=== PATIENT | male | born 1995 | race African-American/Black ===

== ENCOUNTER 2020-08-15 16:33 | Emergency (ER) | payer SELFPAY ==
[2020-08-15 16:39] VITALS: BP 143/76; PULSE 63; RESP 18; TEMP 36.8; O2SAT 97
--- NOTE | 2020-08-15 18:57 | ED.GENADULT ---
HPI - General Adult General Chief complaint: Unspecified Stated complaint: STD check Time Seen by Provider: 08/15/20 18:46 Source: patient Mode of arrival: ambulatory Limitations: no limitations History of Present Illness HPI narrative: Patient is a 25-year-old male who presents with several days duration of burning of the penis at the urethral opening patient also notes some irritation at this location patient would like to be tested and treated for STDs denies similar occurrence in the past or other complaints presents in no distress has not been seen for this complaint nor is he taken anything for this Related Data Allergies Allergy/AdvReac Type Severity Reaction Status Date / Time No Known Allergies Allergy Verified 08/15/20 16:42 Review of Systems Review of Systems: All systems reviewed & are unremarkable except as noted in HPI and below PMFSH Social History Social History Gender identity (if verbalized by the patient): Male Exam Narrative: Exam Narrative: GENERAL: Well-appearing, well-nourished, and in no acute distress. HEAD: Normocephalic, atraumatic. EYES: PERRLA and EOMI. ENT: Nares clear, no rhinorrhea or epistaxis. Mucous membranes moist. CHEST: Clear to auscultation. No respiratory distress. No wheezes rales or rhonchi HEART: Regular rate and rhythm. No murmur heard. SKIN: Warm, dry, no rash. NEURO: No focal deficits. Alert and oriented x3. PSYCH: Normal mood and affect. Course Course Emergency Course: Patient evaluated in the emergency department for evaluation of concern for STD was tested and treated will be given follow-up patient agrees with this plan Vital Signs Vital signs: Vital Signs Temperature 98.2 F 08/15/20 16:39 Pulse Rate 63 08/15/20 16:39 Respiratory Rate 18 08/15/20 16:39 Blood Pressure 143/76 H 08/15/20 16:39 Pulse Oximetry 97 08/15/20 16:39 Temperature 98.2 F 08/15/20 16:39 Pulse Rate 63 08/15/20 16:39 Respiratory Rate 18 08/15/20 16:39 Blood Pressure 143/76 H 08/15/20 16:39 Pulse Oximetry 97 08/15/20 16:39 Medical Decision Making MDM Narrative Medical decision making narrative: Patient tested and treated for STDs as requested referred to primary care Vital Signs Vital Signs: Vital Signs Temperature 98.2 F 08/15/20 16:39 Pulse Rate 63 08/15/20 16:39 Respiratory Rate 18 08/15/20 16:39 Blood Pressure 143/76 H 08/15/20 16:39 Pulse Oximetry 97 08/15/20 16:39 Temperature 98.2 F 08/15/20 16:39 Pulse Rate 63 08/15/20 16:39 Respiratory Rate 18 08/15/20 16:39 Blood Pressure 143/76 H 08/15/20 16:39 Pulse Oximetry 97 08/15/20 16:39 Discharge Plan Discharge Clinical Impression: Urethritis Patient Disposition: Home, Self-Care Condition: Stable Instructions: Antibiotic Form, Sexually Transmitted Diseases (ED), Nonspecific Urethritis in Men (ED) Additional Instructions: Follow up with primary care in the next 2-3 days for re-evaluation and culture results. Antibiotics as prescribed. Increase fluid intake. Tylenol and Motrin for pain and or fever if needed. Follow up with your doctor for further care. Call your doctor or return to the emergency department if needed for worsening symptoms or problems, especially if you have persistent high fever, vomiting, inability to urinate, weakness, blood in your urine, chnage in mental status, or other serious concerns. Prescriptions: New metronidazole [Flagyl] 500 mg tablet 500 mg PO Q12H 7 Days Qty: 14 RF: 0 doxycycline hyclate 100 mg capsule 100 mg PO Q12H 7 Days Qty: 14 RF: 0 Follow-up/Referrals: Jean Frias MD [Primary Care Provider] - Andrea Smith DO [Physician] -
[2020-08-15] MEDS: LIDOCAINE HCL 1% LOCAL INJ 20 ML VIAL 2.1 ML XX (20:00)
[2020-08-15] MEDS: cefTRIAXone 1 GM VIAL 0.5 GM IM (20:00)
[2020-08-15 20:04] VITALS: BP 128/87; PULSE 86; RESP 18; O2SAT 98
[2020-08-15 20:08] LABS: Add Urine Microscopic? NO; Appearance Urine Clear (Clear); Bilirubin Urine Negative (Negative); Blood Urine Negative (Negative); Color Urine Yellow (Yellow); Glucose Urine UA Negative (Negative); Ketones Urine Negative (Negative); Leukocyte Esterase Ur Negative LEU/UL (Negative); Nitrate Urine Negative (Negative); Protein Urine Negative (Negative); Specific Grav Ur 1.016 (1.001-1.035); Urobilinogen Urine Negative mg/dL (<2.0)
== END 2020-08-15 20:06 | disposition home or self-care (01) ==
PROVIDERS: Emergency Medicine Emergency Medical Services; Emergency Provider Emergency Medicine; PCP Pediatrics
DX: N34.2 Other urethritis (principal)
CPT/HCPCS: 81003; 87491; 87591; 96372; 99283; J0696

== ENCOUNTER 2020-08-20 08:28 | Emergency (ER) | payer SELFPAY ==
[2020-08-20 08:35] VITALS: BP 127/69; PULSE 60; RESP 15; TEMP 36.7; O2SAT 100
--- NOTE | 2020-08-20 08:41 | PC.NURSE ---
Arrives ambulatory steady gait from triage, was seen here 08/15 and treated for STI, still taking Flagyl and doxy, c/o continued redness and burning to tip of penis , denies urinary s/s, afebrile
--- NOTE | 2020-08-20 09:17 | ED.GENADULT ---
HPI - General Adult General Chief complaint: Urogenital-Male Stated complaint: body aches Time Seen by Provider: 08/20/20 09:09 History of Present Illness HPI narrative: Patient is a 25-year-old male otherwise healthy who comes into the ED today because of a wound he noticed at the end of his penis. Patient reports that he was seen here in this emergency room 5 days ago with dysuria, he received a shot of Rocephin and was discharged with doxycycline and Flagyl. He is taking these medicines as directed. He says that his dysuria has since resolved. However he noticed the wound on the end of his penis a few days ago. It is nontender to palpate. There is no drainage. He denies any fevers. He notes that he has been having a backache for the last few days. Denies any radiating pain, numbness, tingling, fevers, nausea, vomiting, abdominal pain. Also notes that about 10 days ago he was seen at [facility] for flank pain. According to the patient CT scan was normal, he was told that he could have acute kidney injury but otherwise no source of his pain was found and he has been drinking plenty of water since then. Related Data Allergies Allergy/AdvReac Type Severity Reaction Status Date / Time No Known Allergies Allergy Verified 08/15/20 16:42 Review of Systems Constitutional: Constitutional: Reports as per HPI, Denies fever(s), Denies night sweats and Denies weakness Cardiovascular: Cardiovascular: Denies chest pain, Denies edema, Denies leg edema, Denies dyspnea and Denies orthopnea Respiratory: Respiratory: Denies cough and Denies dyspnea Gastrointestinal: Gastrointestinal: Denies abdominal pain, Denies constipation, Denies diarrhea, Denies nausea and Denies vomiting Musculoskeletal: Musculoskeletal: Denies abnormal gait, Reports back pain, Denies numbness and Denies tingling Integumentary/Breasts: Comments: See HPI for wound at end of penis. Neurologic: Denies Abnormal speech present, Denies abnormal gait, Denies numbness, Denies tingling and Denies weakness Psychiatric: Psychiatric: Denies homicidal ideation and Denies suicidal ideation PMFSH Social History Social History Gender identity (if verbalized by the patient): Male Exam Const: General: cooperative, healthy appearing, comfortable, no acute distress, well developed, alert, awake and Physically active Orientation/consciousness: patient oriented x3 Other: Well-appearing, pleasant, no distress HENMT: Head: normal to inspection, normocephalic and atraumatic Ears: external ears normal General nose exam: Normal external nose present Eyes: Pupils: Equal, round and reactive pupils present EOM: EOMs intact bilaterally Neck: Neck: normal visual inspection Chest: Chest palpation & inspection: normal inspection of the chest and no tenderness Resp: Effort & Inspection: normal respiratory effort and able to speak in complete sentences Auscultation: clear to auscultation bilaterally Cardio: Rate: regular rate Rhythm: regular rhythm GI: Inspection: normal to inspection GI Palp: No abdominal tenderness Other: No abdominal pain to deep palpation : General: Yes no CVA tenderness Scrotum: scrotum normal, not erythematous, no masses and no scrotal swelling Testes: Testes normal, no epidiymal tenderness, no testicular swelling and no testicular tenderness Other: At the very end of the penis just inferior to the urethral meatus there is a very tiny superficial ulceration, approximately 2 mm in diameter. Nontender to palpate. No drainage, no edema. No other lesions noted. Rest of penis is normal. Back/Spine/Pelvis: Back: no CVA tenderness Other: Nontender to palpate over low back diffusely. Neurovascular intact throughout. Normal gait. Normal strength. Skin: General skin exam: normal color and no rashes or lesions noted Lesions: no lesions Neuro: General: patient oriented x3, no focal motor deficits and
[2020-08-20 10:22] LABS: Add Urine Microscopic? YES; Appearance Urine Clear (Clear); Bacteria Urine Trace /hpf; Bilirubin Urine Negative (Negative); Blood Urine Negative (Negative); Color Urine Yellow (Yellow); Glucose Urine UA Negative (Negative); Ketones Urine Negative (Negative); Leukocyte Esterase Ur Trace LEU/UL (Negative); Nitrate Urine Negative (Negative); Protein Urine Negative (Negative); Specific Grav Ur 1.012 (1.001-1.035); Urobilinogen Urine Negative mg/dL (<2.0); WBC Urine 0-3 /hpf
[2020-08-20] MEDS: ACETAMINOPHEN 500 MG TABLET 1000 MG PO (10:33)
[2020-08-20] MEDS: IBUPROFEN 600 MG TABLET PO (10:34)
[2020-08-20 10:53] LABS: Rapid Plasma Reagin Non-Reactive (NonReactive)
[2020-08-20 12:24] VITALS: BP 123/71; PULSE 59; RESP 17; O2SAT 98
== END 2020-08-20 12:26 | disposition home or self-care (01) ==
PROVIDERS: Physician Assistant Medical; Emergency Provider Emergency Medicine; PCP Pediatrics
DX: S30.812A Abrasion of penis, initial encounter (principal); X58.XXXA Exposure to other specified factors, initial encounter; N50.9 Disorder of male genital organs, unspecified
CPT/HCPCS: 36415; 81001; 86592; 99283; A9270

== ENCOUNTER 2020-08-24 15:51 | Emergency (ER) | payer SELFPAY ==
--- NOTE | ~2020-08-24 | CT_ITS ---
EXAMINATION: CT abdomen pelvis wo con DATE: 08/24/2020 16:44 INDICATION: Left flank pain TECHNIQUE: Computed tomography (CT) of the abdomen and pelvis was performed without intravenous contr ast. The dose-length product was 166.11 mGy-cm. Automated exposure control and iterative reconstructi on technique were employed. COMPARISON: None. FINDINGS: Lung bases are unremarkable. Heart size normal. No significant pleural or pericardial effus ion. No significant vascular abnormality. No lymphadenopathy. Nonobstructive bowel gas pattern. Olga l appendix. No free air or free fluid. The liver, spleen, pancreas, adrenal glands are unremarkable. No renal stones. No hydronephrosis. Jeanmarie dder is decompressed. No abnormal pelvic masses or fluid collections. IMPRESSION: 1. No acute abdominal abnormality. Reviewed, dictated and finalized at location A.
[2020-08-24 15:56] VITALS: BP 125/56; PULSE 57; RESP 16; TEMP 36.2; O2SAT 99
--- NOTE | 2020-08-24 16:21 | ED.GENADULT ---
HPI - General Adult General Chief complaint: Urogenital-Male Stated complaint: dehydration Time Seen by Provider: 08/24/20 16:00 Source: patient Mode of arrival: ambulatory Limitations: no limitations History of Present Illness HPI narrative: Patient presents for evaluation of urinary complaints. He indicates he initially noted some bilateral flank pain on 08/13/2020. He went to [facility] ER and had a CT scan which was negative per his reports. He was told he had an ROSCOE and was instructed to increase water consumption was not given any prescriptions for medications. He was evaluated here on the same day. Gonorrhea and chlamydia testing were performed at that time and were both negative. Patient was given Rocephin in the emergency department and was discharged with prescriptions for doxycycline and Flagyl. He completed the medications as directed. He was seen here again on 08/20/20 for a sore at the tip of his penis. He had RPR drawn which resulted as nonreactive. He was told that his symptoms were likely an abrasion and would heal without intervention. Pt states he has had some urinary symptoms that started yesterday after completing his abx. Initially noted that his urine appeared concentrated and dark. Later in the day he noticed some urinary hesitancy, dribbling, and decreased urinary output despite increased water consumption. Today he experienced pain in the left flank that started around 1100 and lasted until 1300. He has also noted some pain in left inguinal region. No fever, chills, nausea, vomiting, testicular pain, urethral discharge. He is sexually active with one female partner who is asymptomatic. Date of last sexual contact was 3 weeks ago. He does have some constipation but states that this is not new for him. He denies any history of abdominal surgeries. Related Data Allergies Allergy/AdvReac Type Severity Reaction Status Date / Time No Known Allergies Allergy Verified 08/15/20 16:42 Review of Systems Review of Systems: Narrative: CONSTITUTIONAL: Denies fever, chills, or sweats. EYES: Denies visual changes, redness, or discharge. ENT: Denies rhinorrhea, congestion, sore throat, or otalgia. CARDIOVASCULAR: Denies chest pain, palpitations, or edema. RESPIRATORY: Denies cough or dyspnea. GASTROINTESTINAL: Denies abdominal pain, nausea, vomiting, or diarrhea. GENITOURINARY: Reports concentrated urine with associated decreased urine output and hesitancy/dribbling SKIN: Denies rash or itching. MUSCULOSKELETAL: Reports left flank pain earlier, now resolved. Denies any joint pain or myalgia. NEUROLOGIC: Denies headache, numbness, dizziness, or weakness. PSYCHIATRIC: Denies anxiety or depression. PMFSH Past Medical History Medical History (Updated 08/24/20 @ 18:01 by MARY AmayaP, ) GERD (gastroesophageal reflux disease) Surgical History Surgical History (Updated 08/24/20 @ 16:27 by Ramsey Barbosa [facility], ) No pertinent past surgical history Family History Family History Mother Asthma Social History Social History (Updated 08/24/20 @ 16:28 by Ramsey Barbosa [facility], ) Smoking status: Former smoker Alcohol use details: social Substance use: never Gender identity (if verbalized by the patient): Male Sexual Orientation (if Verbalized by the Patient): Straight or Heterosexual Spiritual care concerns: No Exam Narrative: Exam Narrative: GENERAL: Well-appearing, well-nourished, and in no acute distress. HEAD: Normocephalic, atraumatic. EYES: PERRLA and EOMI. ENT: Nares clear, no rhinorrhea or epistaxis. Mucous membranes moist. Oropharynx without tonsillar hypertrophy exudate or other lesions. Bilateral TMs pearly irwin nonbulging NECK: Supple. No adenopathy or masses. No carotid bruits or JVD CHEST: Clear to auscultation. No respiratory distress. No wheezes rales or rhonchi HEART: Regular rate and rhythm. No murmur
[2020-08-24 17:20] LABS: Basophils Percent Auto 0.8 % (0.2-1.2); Eosinophils Absolute Auto 0.1 K/mm3 (0-0.3); Eosinophils Percent Auto 2.2 % (0-4.4); Hematocrit 45.2 % (42.0-52.0); Hemoglobin 15.7 g/dL (14.0-18.0); Lymphocytes Absolute Auto 1.52 K/mm3 (0.9-3.2); Lymphocytes Percent Auto 41.5 % (18.3-44.2); Mean Corpuscular HGB Conc 34.7 g/dl (32-36); Mean Corpuscular Hemoglobin 31.9 pg (26-34); Mean Corpuscular Volume 91.9 fl (80-100); Mean Platelet Volume 9.8 fl (7.4-10.4); Monocytes Absolute Auto 0.5 K/mm3 (0.1-0.6); Monocytes Percent Auto 12.6 % (2.6-8.5); Neutrophils Absolute Auto 1.6 K/mm3 (1.3-6.7); Neutrophils Percent Auto 42.9 % (45.5-73.1); Platelet Count Result 181 k/mm3 (150-375); Red Blood Count 4.92 M/mm3 (4.6-6.20); Red Cell Distribution Width 11.8 % (11.5-14.5); White Blood Count 3.7 K/mm3 (4.5-10.0)
[2020-08-24 17:20] LABS: Add Urine Microscopic? YES; Appearance Urine Clear (Clear); Bacteria Urine Trace /hpf; Bilirubin Urine Negative (Negative); Blood Urine Negative (Negative); Color Urine Yellow (Yellow); Glucose Urine UA Negative (Negative); Ketones Urine Trace mg/dL (Negative); Leukocyte Esterase Ur Trace LEU/UL (Negative); Mucus Urine Rare /lpf; Nitrate Urine Negative (Negative); Protein Urine 1+ mg/dL (Negative); Urobilinogen Urine Negative mg/dL (<2.0); WBC Urine 0-3 /hpf
[2020-08-24 17:33] LABS: Alanine Aminotransferase 30 U/L (4-50); Albumin Level 4.5 g/dL (3.5-5.1); Alkaline Phosphatase 53 U/L (38-126); Anion Gap 7 mmol/L (8-16); Aspartate Amino Transferase 40 U/L (17-59); Bilirubin,Total 0.5 mg/dL (0.2-1.3); Blood Urea Nitrogen 12 mg/dL (9-20); Calcium 9.3 mg/dL (8.4-10.2); Carbon Dioxide 29 mmol/L (22-30); Chloride 102 mmol/L (98-107); Estimated CRCL calculation 73 ml/min; Estimated Glomerular Filt Rate > 60; Glucose 77 mg/dL (75-110); Lipase 116 U/L (23-300); Potassium 3.7 mmol/L (3.4-5.0); Sodium 138 mmol/L (137-145)
[2020-08-24 18:34] VITALS: BP 128/70; PULSE 62; RESP 17; O2SAT 100
== END 2020-08-24 18:36 | disposition home or self-care (01) ==
PROVIDERS: Emergency Provider Nurse Practitioner; PCP Pediatrics
DX: R10.9 Unspecified abdominal pain (principal); K21.9 Gastro-esophageal reflux disease without esophagitis; Z87.891 Personal history of nicotine dependence
CPT/HCPCS: 36415; 74176; 80053; 81001; 83690; 85025; 87491; 87591; 87661; 99284

== ENCOUNTER 2020-12-29 09:09 | Emergency (ER) | payer SELFPAY ==
--- NOTE | ~2020-12-29 | XR_ITS ---
EXAMINATION: XR chest 2V EXAM DATE: 12/29/2020 11:43 INDICATION: Left-sided chest wall pain. TECHNIQUE: Frontal and lateral projections of the chest obtained and reviewed. There is no prior hernando dy for comparison. FINDINGS: The lungs are clear. There are no pleural effusions. The cardiomediastinal silhouette is within normal limits. There is no pneumothorax suspected. The bones and soft tissues are unremarkab le. IMPRESSION: No acute cardiopulmonary findings. Reviewed, dictated and finalized at location B.
[2020-12-29 09:09] VITALS: BP 132/74; PULSE 68; RESP 20; TEMP 36.8; O2SAT 99
[2020-12-29 10:00] LABS: Eosinophils Percent Auto 1.3 % (0-4.4); Hemoglobin 15.4 g/dL (14.0-18.0); Immature Granulocyte Absolute 0.01 K/mm3 (0.00-0.031); Immature Granulocyte Percent A 0.3 % (0-0.5); Lymphocytes Absolute Auto 1.23 K/mm3 (0.9-3.2); Lymphocytes Percent Auto 39.5 % (18.3-44.2); Mean Corpuscular HGB Conc 34.2 g/dl (32-36); Mean Corpuscular Hemoglobin 31.2 pg (26-34); Mean Corpuscular Volume 91.1 fl (80-100); Mean Platelet Volume 9.8 fl (7.4-10.4); Monocytes Absolute Auto 0.4 K/mm3 (0.1-0.6); Monocytes Percent Auto 11.6 % (2.6-8.5); Neutrophils Absolute Auto 1.4 K/mm3 (1.3-6.7); Neutrophils Percent Auto 46.3 % (45.5-73.1); Platelet Count Result 195 k/mm3 (150-375); Red Blood Count 4.94 M/mm3 (4.6-6.20); White Blood Count 3.1 K/mm3 (4.5-10.0)
[2020-12-29 10:12] LABS: Alanine Aminotransferase 22 U/L (4-50); Albumin Level 4.8 g/dL (3.5-5.1); Alkaline Phosphatase 47 U/L (38-126); Anion Gap 10 mmol/L (8-16); Aspartate Amino Transferase 27 U/L (17-59); Bilirubin,Total 0.6 mg/dL (0.2-1.3); Blood Urea Nitrogen 12 mg/dL (9-20); Calcium 9.7 mg/dL (8.4-10.2); Carbon Dioxide 26 mmol/L (22-30); Chloride 104 mmol/L (98-107); Estimated CRCL calculation 79 ml/min; Estimated Glomerular Filt Rate > 60; Glucose 94 mg/dL (65-110); Lipase 122 U/L (23-300); Potassium 3.9 mmol/L (3.4-5.0); Sodium 140 mmol/L (137-145)
[2020-12-29 10:23] LABS: Add Urine Microscopic? NO; Appearance Urine Clear (Clear); Bilirubin Urine Negative (Negative); Blood Urine Negative (Negative); Color Urine Colorless (Yellow); Glucose Urine UA Negative (Negative); Ketones Urine Negative (Negative); Leukocyte Esterase Ur Negative LEU/UL (Negative); Nitrate Urine Negative (Negative); Protein Urine Negative (Negative); Urobilinogen Urine Negative mg/dL (<2.0)
[2020-12-29 10:27] LABS: Specific Grav Ur 1.003 (1.001-1.035)
--- NOTE | 2020-12-29 11:29 | ED.ABDPAIN ---
HPI - Abdominal Pain General Chief Complaint: Abdominal Pain Stated Complaint: BILATERAL FLANK PAIN Time Seen by Provider: 12/29/20 11:09 History of Present Illness HPI narrative: Bilateral flank pain for 2 days. Intermittent. Feels achy. He reports that he had a bowel movement today and it was brown on the outside, but dark in the middle. No additional symptoms. He has not tried anything to treat his pain. Related Data Home Medications Medication Instructions Recorded Confirmed No Home Medications 12/29/20 12/29/20 Allergies Allergy/AdvReac Type Severity Reaction Status Date / Time No Known Allergies Allergy Verified 12/29/20 10:57 Review of Systems Review of Systems: All systems reviewed & are unremarkable except as noted in HPI and below Constitutional: Constitutional: Denies chills and Denies fever(s) ENT: Reports system reviewed and no additional complaints, except as documented Cardiovascular: Cardiovascular: Denies chest pain Respiratory: Respiratory: Denies dyspnea Gastrointestinal: Gastrointestinal: Denies diarrhea, Denies nausea and Denies vomiting Neurologic: Reports system reviewed and no additional complaints, except as documented [facility] Past Medical History Medical History GERD (gastroesophageal reflux disease) Surgical History Surgical History No pertinent past surgical history Family History Family History Mother Asthma Social History Social History Smoking status: Former smoker Alcohol use details: social Substance use: never Gender identity (if verbalized by the patient): Male Sexual Orientation (if Verbalized by the Patient): Straight or Heterosexual Spiritual care concerns: No Exam Const: General: healthy appearing, no acute distress and alert Orientation/consciousness: patient oriented x3 HENMT: Head: normal to inspection Neck: Neck: normal visual inspection and no lymphadenopathy Chest: Chest palpation & inspection: no tenderness Resp: Effort & Inspection: normal respiratory effort Auscultation: clear to auscultation bilaterally, no rales, no rhonchi and no wheezes Cardio: Jugular venous distension: no JVD Rate: regular rate Rhythm: regular rhythm Heart sounds: no murmurs GI: Inspection: non-distended GI Palp: Yes Soft to palpation and No Tenderness to palpation present (GI) Skin: General skin exam: normal color Neuro: General: patient oriented x3 and moves all extremities Speech: normal speech Extrem: General: no edema Psych: Appearance: well kempt Affect: normal affect Course Vital Signs Vital signs: Vital Signs Temperature 36.8 C 12/29/20 09:09 Pulse Rate 68 12/29/20 09:09 Respiratory Rate 20 12/29/20 09:09 Blood Pressure 132/74 12/29/20 09:09 Pulse Oximetry 99 12/29/20 09:09 Temperature 36.8 C 12/29/20 09:09 Pulse Rate 64 12/29/20 12:25 Respiratory Rate 15 12/29/20 12:25 Blood Pressure 128/89 12/29/20 12:25 Pulse Oximetry 98 12/29/20 12:25 MDM - Abdominal Pain MDM Narrative Medical decision making narrative: Labs and imaging unremarkable. Medical Records Attestation: I reviewed the patient's medical records. Lab Data Attestation: I reviewed the patient's lab results. Result diagrams: 12/29/20 09:42 12/29/20 09:42 Labs: Lab Results 12/29/20 12/29/20 12/29/20 Range/Units 09:42 09:42 09:42 WBC 3.1 L (4.5-10.0) K/mm3 RBC 4.94 (4.6-6.20) M/mm3 Hgb 15.4 (14.0-18.0) g/dL Hct 45.0 (42.0-52.0) % MCV 91.1 (80-100) fl MCH 31.2 (26-34) pg MCHC 34.2 (32-36) g/dl RDW 12.0 (11.5-14.5) % Plt Count 195 (150-375) k/mm3 MPV 9.8 (7.4-10.4) fl Immature Gran % (Auto) 0.3 (0-0.5) % N
[2020-12-29 12:25] VITALS: BP 128/89; PULSE 64; RESP 15; O2SAT 98
== END 2020-12-29 12:26 | disposition home or self-care (01) ==
PROVIDERS: Emergency Medicine; Emergency Provider Emergency Medicine; PCP Pediatrics
DX: R10.9 Unspecified abdominal pain (principal); K21.9 Gastro-esophageal reflux disease without esophagitis; Z87.891 Personal history of nicotine dependence
CPT/HCPCS: 36415; 71046; 80053; 81003; 83690; 85025; 99283

== ENCOUNTER 2023-06-06 07:09 | Emergency (ER) | payer OTHER, SELFPAY ==
[2023-06-06 07:10] VITALS: BP 125/72; PULSE 58; RESP 16; TEMP 36.4; O2SAT 98
[2023-06-06 07:37] LABS: Appearance Urine Clear (Clear); Bilirubin Urine Negative (Negative); Blood Urine Negative (Negative); Color Urine Yellow (Yellow); Glucose Urine UA Negative (Negative); Ketones Urine Negative (Negative); Leukocyte Esterase Ur Negative LEU/UL (Negative); Nitrate Urine Negative (Negative); Protein Urine Negative (Negative); Specific Grav Ur 1.019 (1.001-1.035); Urobilinogen Urine 0.2 mg/dL (<2.0)
--- NOTE | 2023-06-06 07:40 | ED.ABDPAIN ---
HPI - Abdominal Pain General Chief Complaint: Abdominal Pain Stated Complaint: LOWER ABD PAIN Time Seen by Provider: 06/06/23 07:14 History of Present Illness HPI narrative: 27-year-old male presenting to the emergency department for burning with urination. Patient states his partner was just diagnosed with Trichomonas yesterday. Patient reports he only had burning with urination the 1 time. Patient denies any discharge. Related Data Home Medications Medication Instructions Recorded Confirmed No Home Medications 12/29/20 06/06/23 Allergies Allergy/AdvReac Type Severity Reaction Status Date / Time No Known Allergies Allergy Verified 06/06/23 07:16 Review of Systems Review of Systems: All systems reviewed & are unremarkable except as noted in HPI and below PMFSH Past Medical History Medical History GERD (gastroesophageal reflux disease) Surgical History Surgical History No pertinent past surgical history Family History Family History Mother Asthma Social History Social History Smoking status: Former smoker Alcohol use details: social Substance use: never Gender identity (if verbalized by the patient): Male Sexual Orientation (if Verbalized by the Patient): Straight or Heterosexual Spiritual care concerns: No Exam Narrative: APPEARANCE: Well appearing, no pain, no distress, well-nourished. HEAD: normocephalic, atraumatic. EYES: PERRLA/EOMI, conjunctivae clear. NOSE: Normal no drainage NECK: Supple. No adenopathy, no masses. RESPIRATORY: Airway patent, respirations nonlabored. Clear to auscultation bilaterally, no rales, rhonchi, wheezing. CARDIOVASCULAR: Regular rate and rhythm without murmurs rubs or gallops. ABDOMINAL: Soft, nontender, nondistended, normal bowel sounds MUSCULOSKELETAL: Moves all extremities. Strength/ROM intact, No edema, No calf tenderness. NEURO: Alert. Cranial nerves II through XII intact. Grossly intact SKIN: Warm, dry. Normal Color Course Course Emergency Course: 27-year-old male reporting burning with urination and exposure to trick. Patient had a negative UA and patient was negative for trich gonorrhea and chlamydia. Patient was encouraged to follow up the [facility] for additional STI testing as needed. Vital Signs Vital signs: Vital Signs Temperature 97.6 F 06/06/23 07:10 Pulse Rate 58 L 06/06/23 07:10 Respiratory Rate 16 06/06/23 07:10 Blood Pressure 125/72 06/06/23 07:10 Pulse Oximetry 98 06/06/23 07:10 Oxygen Delivery Room Air 06/06/23 07:10 Temperature 97.6 F 06/06/23 07:10 Pulse Rate 58 L 06/06/23 07:10 Respiratory Rate 16 06/06/23 07:10 Blood Pressure 125/72 06/06/23 07:10 Pulse Oximetry 98 06/06/23 07:10 Oxygen Delivery Room Air 06/06/23 07:10 MDM - Abdominal Pain Differential Diagnosis Differential diagnosis: Likely other (Gonorrhea chlamydia Trichomonas urinary tract infection) Lab Data Labs: Lab Results 06/06/23 Range/Units 07:31 Urine Color Yellow (Yellow) Urine Appearance Clear (Clear) Urine pH 6.0 (5.0-9.0) Ur Specific Haines 1.019 (1.001-1.035) Urine Protein Negative (Negative) mg/dL Urine Glucose (UA) Negative (Negative) mg/dL Urine Ketones Negative (Negative) mg/dL Ur Blood (Man) Negative (Negative) Urine Nitrate Negative (Negative) Urine Bilirubin Negative (Negative) Urine Urobilinogen 0.2 (<2.0) mg/dL Leukocyte Esterase Rfl Negative (Negative) ANETA/UL C. trachomatis (PCR) Not detected (NOT DETECTE) N. gonorrhoeae (PCR) Not detected (NOT DETECTE) T. vaginalis (PCR) Not detected (NOT DETECTE) Discharge Plan Discharge Clinical Impression: Screening examination fo
[2023-06-06 07:59] LABS: Add Urine Microscopic? NO
[2023-06-06 08:44] LABS: Trichomonas Vag PCR NOT DETECTED (NOT DETECTE)
[2023-06-06 09:09] LABS: Chlamydia trachomatis NOT DETECTED (NOT DETECTE); Neisseria gonorrhoeae PCR NOT DETECTED (NOT DETECTE)
== END 2023-06-06 09:33 | disposition home or self-care (01) ==
PROVIDERS: Emergency Provider Emergency Medicine; PCP Pediatrics
DX: R30.0 Dysuria (principal); Z11.3 Encounter for screening for infections with a predominantly sexual mode of transmission; K21.9 Gastro-esophageal reflux disease without esophagitis
CPT/HCPCS: 81003; 87491; 87591; 87661; 99283